=== PATIENT | female | born 1975 | race Caucasian/White ===

== ENCOUNTER → 2021-11-24 | Outpatient (CLI) | payer BC ==
[~2021-11-24] MED LIST: LODINE CAP 300300 MG PO; ZOFRAN ODT 4 MG4 MG SL
== END ==
LOC: EMI 12:43
DX: R27.0 Ataxia, unspecified (principal); R51.9 Headache, unspecified; H70.009 Acute mastoiditis without complications, unspecified ear; R20.2 Paresthesia of skin
CPT/HCPCS: 70551

== ENCOUNTER → 2021-12-21 | Outpatient (CLI) | payer BC | LOC: EXRD 15:17 → HEART 5 15:17 | DX: R27.0 Ataxia, unspecified (principal); R51.9 Headache, unspecified; M54.9 Dorsalgia, unspecified | CPT/HCPCS: 71101; 72040 ==